=== PATIENT | male | born 1970 | race African-American/Black ===

== ENCOUNTER 2020-04-09 22:30 | Emergency (ER) | payer MEDICAID ==
[~2020-04-09] VITALS: Ht 180.3 cm; Wt 93.0 kg
[2020-04-09] MEDS ORDERED: ONDANSETRON ODT 4 MG TAB.RAPDIS ONE (23:00)
[2020-04-09] MEDS ORDERED: CEFTRIAXONE 500 MG VIAL ONE (23:00)
[2020-04-09] MEDS ORDERED: CEFTRIAXONE 500 MG VIAL IM ONE (23:00)
[2020-04-09] MEDS ORDERED: AZITHROMYCIN 250 MG TABLET PO ONE (23:00)
[2020-04-09] MEDS ORDERED: AZITHROMYCIN 250 MG TABLET ONE (23:00)
[2020-04-09] MEDS ORDERED: ONDANSETRON ODT 4 MG TAB.RAPDIS SL ONE (23:00)
[2020-04-09 23:21] VITALS: BP 120/80
== END 2020-04-09 23:22 | disposition home or self-care (01) ==
LOC: ER 22:30
DX: N34.2 Other urethritis (principal)
CPT/HCPCS: 96372; 99283; J0696; J3490; A4663; Q0144; Q0162

== ENCOUNTER 2025-03-26 18:45 | Emergency (ER) | payer MEDICAID, OTHER ==
[~2025-03-26] VITALS: Ht 177.8 cm; Wt 63.5 kg
[2025-03-26] MEDS ORDERED: HUM100IN SQ (19:08)
[2025-03-26] MEDS ORDERED: ESCI5TAB PO (19:08)
[2025-03-26] MEDS ORDERED: LISI10TA29 PO (19:08)
[2025-03-26] MEDS ORDERED: PRAV10TA40 PO (19:08)
[2025-03-26 19:51] LABS: PLATELET COUNT (AUTO) 96 K/uL (152-348); RED BLOOD CELL COUNT(AUTO) 5.50 MIL/uL (4.06-5.63); RED CELL DISTRIBUTION WIDTH 15.2 % (12.1-16.2); WHITE BLOOD COUNT (AUTO) 4.0 K/uL (3.6-10.2)
[2025-03-26 20:05] LABS: ASPARTATE AMINOTRANSFERASE 9.0 U/L (15-37); CREATININE 1.7 mg/dL (0.6-1.3); SODIUM SERUM 148.0 mmol/L (136-145); TOTAL PROTEIN, SERUM 8.7 g/dL (6.4-8.2); UREA NITROGEN, BLOOD 28.0 mg/dL (7-18)
[2025-03-26 20:09] LABS: LACTIC ACID 2.2 mmol/L (0.4-2.0)
[2025-03-26] MEDS ORDERED: INSULIN NPH 1,000 UNITS/10 ML VIAL SQ ONE (20:22)
[2025-03-26] MEDS ORDERED: INSULIN REGULAR, HUMAN 1000 UNIT/10 ML VIAL ONE (20:23)
[2025-03-26] MEDS: INSULIN REGULAR, HUMAN 1000 UNIT/10 ML VIAL IV ONE ×2 (20:35→21:48)
[2025-03-26] MEDS: IV NS 1000 ML 1,000 ML IV ONE ×2 (20:36→21:58)
[2025-03-26 21:07] VITALS: BP 121/81
[2025-03-26 23:46] LABS: *BILIRUBIN,URIN 1+ (NEGATIVE); *BLOOD, URINE NEGATIVE (NEGATIVE); *CLARITY,URINE CLEAR (CLEAR); *COLOR,URINE YELLOW (YELLOW); *KETONES,URINE 3+ (NEGATIVE); *PROTEIN,URINE TRACE (NEGATIVE); *UROBILINOGEN,URINE 0.2 E.U./dl (NORMAL); LEUKOCYTE ESTERASE ,URINE NEGATIVE (NEGATIVE); NITRITE, URINE NEGATIVE (NEGATIVE); UGLUCOSE 3+ (NEGATIVE)
[2025-03-26 23:59] LABS: *AMPHETAMINE, URINE NEGATIVE (NEGATIVE); *BARBITURATE, URINE NEGATIVE (NEGATIVE); *BENZODIAZEPINE, URINE NEGATIVE (NEGATIVE); *CANNABINOID, URINE NEGATIVE (NEGATIVE); *COCCAINE, URINE NEGATIVE (NEGATIVE); *OPIATE, URINE NEGATIVE (NEGATIVE); *PHENCYCLIDINE SCREEN,URINE NEGATIVE (NEGATIVE); FENTANYL, URINE NEGATIVE (NEGATIVE)
[2025-03-27 00:04] LABS: YEAST,URINE RARE /HPF (NONE SEEN)
[2025-03-27] MEDS ORDERED: SULF1TAB48 PO (00:18)
[2025-03-27] MEDS ORDERED: ONDA4TAB5 PO (00:33)
[2025-03-27 00:43] VITALS: BP 126/80; TEMP 97.9; O2SAT 99
== END 2025-03-27 00:45 | disposition home or self-care (01) ==
LOC: ER 18:45
DX: E11.65 Type 2 diabetes mellitus with hyperglycemia (principal); R11.10 Vomiting, unspecified; R06.02 Shortness of breath; Z79.4 Long term (current) use of insulin; Z79.899 Other long term (current) drug therapy
CPT/HCPCS: 99285; 74176; 96374; 96361; 71045; 80053; 82009; 82248; 82962 ×3; 83880; 85025; 87040; 84484; 36415; 93005; 96376; 83605 ×2; 80307; 81001; 87086; J1815; J7040 ×2; A4606; A4663